=== PATIENT | male | born 1930 | race Caucasian/White ===

== ENCOUNTER 2017-09-29 10:41 | Outpatient (CLI) | END 2017-09-29 10:42 | disposition short-term general hospital (02) | LOC: AMBL 10:41 | PROVIDERS: ATTEND Family Medicine | DX: S01.111A Laceration without foreign body of right eyelid and periocular area, initial encounter (principal); W05.0XXA Fall from non-moving wheelchair, initial encounter ==

== ENCOUNTER 2017-10-03 19:41 | Outpatient (CLI) | END 2017-10-03 19:42 | disposition short-term general hospital (02) | LOC: AMBL 19:41 | PROVIDERS: ATTEND Family Medicine | DX: M79.602 Pain in left arm (principal); S00.83XA Contusion of other part of head, initial encounter; R20.0 Anesthesia of skin; R53.1 Weakness ==

== ENCOUNTER 2017-10-12 08:14 | Outpatient (CLI) ==
[2017-10-12 08:51] LABS: BILIRUBIN,URINE Negative (NEGATIVE); KETONES,URINE Negative (NEGATIVE); LEUKOCYTE ESTERASE ,URINE Negative (NEGATIVE); NITRITE,URINE Negative (NEGATIVE); PH,URINE 5.5 (5-9); PROTEIN,URINE Negative (NEGATIVE); URINE, BLOOD Negative (NEGATIVE)
[2017-10-12 08:52] LABS: ADD URINE MICROSCOPIC NO
== END 2017-10-12 08:15 | disposition home or self-care (01) ==
LOC: NONPT 08:14
PROVIDERS: ATTEND Emergency Medicine
DX: R30.0 Dysuria (principal)
CPT/HCPCS: 81001

== ENCOUNTER 2017-10-22 14:44 | Outpatient (CLI) ==
[2017-10-22 17:59] VITALS: BMI 26.4
== END 2017-10-22 14:45 | disposition critical access hospital (66) ==
LOC: AMBL 14:44
PROVIDERS: ATTEND Emergency Medicine
DX: R05 Cough (principal); R41.0 Disorientation, unspecified; R09.89 Other specified symptoms and signs involving the circulatory and respiratory systems; R53.83 Other fatigue; R52 Pain, unspecified

== ENCOUNTER 2017-10-22 16:05 | Inpatient (IN) ==
[2017-10-22] MEDS ORDERED: TYLENOL PO PRN (16:16)
[2017-10-22] MEDS ORDERED: SODIUM CHLORIDE 1,000 ML IV SCH (16:30)
[2017-10-22 16:55] LABS: BASOPHILS % (AUTO) 0.1 % (0.0-3.0); EOSINOPHILS % (AUTO) 0.5 % (0.0-7.0); HEMATOCRIT 37.5 % (42.0-52.0); HEMOGLOBIN 11.7 g/dl (14.0-18.0); IMMATURE GRANULOCYTE % (AUTO) 0.3 % (0.0-5.0); LYMPHOCYTES # (AUTO) 0.6 K/uL (0.60-3.4); LYMPHOCYTES % (AUTO) 7.7 (10.0-50.0); MEAN CORPUSCULAR HGB CONC 31.2 (31.8-35.4); MEAN CORPUSCULAR VOLUME 73.8 fl (80.0-94.0); MONOCYTES # (AUTO) 0.6 K/uL (0.4-2.0); MONOCYTES % (AUTO) 7.7 (0-10); NEUTROPHILS # (AUTO) 6.6 K/ul (2.0-6.9); NEUTROPHILS % (AUTO) 83.7; PLATELET COUNT 239 10^3/uL (140-440); RED BLOOD COUNT 5.08 10^6/ul (4.70-6.10); WHITE BLOOD COUNT 7.93 K/ul (4.2-10.2)
--- NOTE | 2017-10-22 16:56 | CT ---
Exam: CT of the chest without intravenous contrast. Comparison: None available. Reason for exam: Coughing. 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 Image interpre tation is limited by the lack of intravenous contrast administration. The thyroid gland appears mildly heterogeneous. The aorta is prominent measuring 4 cm the level of the arch. There is atherosclerotic disease within the aorta and distal arterial vasculature to include the austyn nary vessels. There is a ground-glass nodularity in the right upper lobe on axial image number 25. Nodular density in the superior left lower lobe on axial image number 34. Ground-glass nodules in th e left lung base on axial image number 45. The gallbladder has been removed. The right adrenal gland has a nodular appearance. No pneumothorax, pleural effusion, or focal consolidation. No suspicious appearing osteoblastic or o steolytic lesions. Impression: 1. Ground-glass nodularity in the right upper and left lower lobes with a pleural-based nodule in the left lower lobe. Imaging findings likely represent inflammation and infection. Recommend short int erval follow-up CT imaging to document resolution. 2. The aorta measures 4 cm at the level of the arch. 3. Nodularity of the right adrenal gland. If clinical concern exists, MRI or CT adrenal gland protoc ol may be performed for further characterization.
[2017-10-22 17:43] LABS: ALBUMIN 3.3 g/dL (3.4-5.0); ALBUMIN/GLOBULIN RATIO 0.97; ANION GAP 16.8; BILIRUBIN,TOTAL 0.67 mg/dL (0.00-1.20); BUN/CREATININE RATIO 28.2; CALCIUM 9.2 mg/dL (8.2-10.2); CREATININE 0.78 mg/dL (0.60-1.10); POTASSIUM 3.8 mmol/L (3.5-5.1); TOTAL PROTEIN 6.7 g/dL (5.8-8.1); TROPONIN I 0.023 ng/ml (0.0000-0.4000)
[2017-10-22 17:59] VITALS: BMI 26.4
[2017-10-22] MEDS: DUONEB NEB SCH ×2 (18:10→22:58)
[2017-10-22] MEDS ORDERED: ROCEPHIN ONE (18:32)
[2017-10-22] MEDS: ROCEPHIN 1 GM in SODIUM CHLORIDE 50 ML IV SCH (18:36)
[2017-10-22 18:40] LABS: FLU INTERNAL QC INTERNAL QC VALID; RAPID FLU A NEGATIVE (NEGATIVE); RAPID FLU B NEGATIVE (NEGATIVE)
[2017-10-22] MEDS ORDERED: GUAIFENESIN PO PRN (21:16)
[2017-10-22] MEDS ORDERED: ANTIVERT PO PRN (21:16)
[2017-10-22] MEDS ORDERED: IMODIUM PO PRN (21:16)
[2017-10-22] MEDS ORDERED: ALBUTEROL 0.083% NEB NEB PRN (21:16)
[2017-10-22] MEDS ORDERED: MILK OF MAGNESIA PO PRN (21:16)
[2017-10-22] MEDS ORDERED: DULCOLAX PO PRN (21:16)
[2017-10-23] MEDS: DUONEB NEB SCH ×4 (04:52→23:20)
[2017-10-23 05:30] LABS: BASOPHILS % (AUTO) 0.2 % (0.0-3.0); EOSINOPHILS % (AUTO) 0.5 % (0.0-7.0); HEMATOCRIT 34.8 % (42.0-52.0); HEMOGLOBIN 10.7 g/dl (14.0-18.0); IMMATURE GRANULOCYTE % (AUTO) 0.2 % (0.0-5.0); LYMPHOCYTES # (AUTO) 0.6 K/uL (0.60-3.4); MEAN CORPUSCULAR HEMOGLOBIN 22.9 pg (27.0-31.0); MEAN CORPUSCULAR HGB CONC 30.7 (31.8-35.4); MEAN CORPUSCULAR VOLUME 74.5 fl (80.0-94.0); MONOCYTES # (AUTO) 0.5 K/uL (0.4-2.0); MONOCYTES % (AUTO) 7.9 (0-10); NEUTROPHILS # (AUTO) 4.7 K/ul (2.0-6.9); NEUTROPHILS % (AUTO) 81.2; PLATELET COUNT 210 10^3/uL (140-440); RED BLOOD COUNT 4.67 10^6/ul (4.70-6.10); WHITE BLOOD COUNT 5.79 K/ul (4.2-10.2)
[2017-10-23 06:25] LABS: ALBUMIN/GLOBULIN RATIO 0.97; ANION GAP 13.7; BILIRUBIN,TOTAL 0.48 mg/dL (0.00-1.20); BUN/CREATININE RATIO 27.02; CALCIUM 8.7 mg/dL (8.2-10.2); CREATININE 0.74 mg/dL (0.60-1.10); POTASSIUM 3.7 mmol/L (3.5-5.1); TOTAL PROTEIN 6.1 g/dL (5.8-8.1)
[2017-10-23 06:41] LABS: TROPONIN I 0.031 ng/ml (0.0000-0.4000)
[2017-10-23 07:09] LABS: CREATINE KINASE MB 1.7 ng/ml (0.0-3.6)
[2017-10-23] MEDS ORDERED: ROBITUSSIN SUGAR-FREE PO PRN (07:45)
[2017-10-23] MEDS: SODIUM CHLORIDE 1,000 ML IV SCH ×3 (08:25→17:02)
[2017-10-23] MEDS ORDERED: CHOLECALCIFEROL PO SCH (09:00)
[2017-10-23] MEDS ORDERED: SENNOSIDES PO SCH (09:00)
[2017-10-23] MEDS ORDERED: DOCUSATE SODIUM PO SCH (09:00)
[2017-10-23] MEDS ORDERED: CARBOXYMETHYLCELLULOSE SODIUM OP SCH (09:00)
[2017-10-23] MEDS ORDERED: NON-FORMULARY MEDICATION (Ferrous Sulfate [Ferrous Sulfate] 1 TAB) PO SCH (09:00)
[2017-10-23] MEDS: FERROUS SULFATE PO SCH (09:18)
[2017-10-23] MEDS: COLACE PO SCH (09:18)
[2017-10-23] MEDS: SENNA PO SCH (09:18)
[2017-10-23] MEDS: GLUCOPHAGE PO SCH ×2 (09:18→16:59)
[2017-10-23] MEDS: ASPIRIN EC PO SCH (09:18)
[2017-10-23] MEDS: MULTIVITAMIN TABLET PO SCH (09:18)
[2017-10-23] MEDS: VITAMIN D PO SCH (09:18)
[2017-10-23] MEDS: NON-FORMULARY MEDICATION (Diclofenac Sodium 1 APPLIC) TD SCH ×3 (09:21→23:49)
[2017-10-23] MEDS: PROAIR HFA IH SCH ×2 (09:27→13:59)
[2017-10-23] MEDS: ULTRAM PO SCH ×3 (09:27→20:07)
[2017-10-23] MEDS: ARTIFICIAL TEARS OPTH SOL OP SCH ×4 (09:27→20:08)
[2017-10-23] MEDS: ROCEPHIN 1 GM in SODIUM CHLORIDE 50 ML IV SCH (09:27)
[2017-10-23] MEDS ORDERED: CALMOSEPTINE OINTMENT TP PRN (11:20)
[2017-10-23] MEDS: CELEXA PO SCH (17:21)
[2017-10-23] MEDS: MELATONIN 2 MG PO SCH (23:49)
[2017-10-24] MEDS: TYLENOL PO PRN (00:21)
[2017-10-24] MEDS ORDERED: ATIVAN PO STA (01:54)
[2017-10-24] MEDS: DUONEB NEB SCH ×4 (05:20→22:58)
[2017-10-24 05:22] LABS: EOSINOPHILS # (AUTO) 0.1 K/ul (0.0-0.7); EOSINOPHILS % (AUTO) 0.9 % (0.0-7.0); HEMATOCRIT 33.4 % (42.0-52.0); HEMOGLOBIN 10.3 g/dl (14.0-18.0); IMMATURE GRANULOCYTE % (AUTO) 0.2 % (0.0-5.0); LYMPHOCYTES # (AUTO) 0.7 K/uL (0.60-3.4); LYMPHOCYTES % (AUTO) 12.8 (10.0-50.0); MEAN CORPUSCULAR HEMOGLOBIN 22.7 pg (27.0-31.0); MEAN CORPUSCULAR HGB CONC 30.8 (31.8-35.4); MEAN CORPUSCULAR VOLUME 73.6 fl (80.0-94.0); MONOCYTES # (AUTO) 0.5 K/uL (0.4-2.0); MONOCYTES % (AUTO) 8.9 (0-10); NEUTROPHILS # (AUTO) 4.4 K/ul (2.0-6.9); NEUTROPHILS % (AUTO) 77.2; PLATELET COUNT 191 10^3/uL (140-440); RED BLOOD COUNT 4.54 10^6/ul (4.70-6.10); WHITE BLOOD COUNT 5.72 K/ul (4.2-10.2)
[2017-10-24 05:56] LABS: ALBUMIN 2.8 g/dL (3.4-5.0); ALBUMIN/GLOBULIN RATIO 0.9; ANION GAP 11.3; BILIRUBIN,TOTAL 0.39 mg/dL (0.00-1.20); BUN/CREATININE RATIO 21.91; CALCIUM 8.4 mg/dL (8.2-10.2); CREATININE 0.73 mg/dL (0.60-1.10); POTASSIUM 3.3 mmol/L (3.5-5.1); TOTAL PROTEIN 5.9 g/dL (5.8-8.1)
[2017-10-24] MEDS: SODIUM CHLORIDE 1,000 ML IV SCH (06:41)
[2017-10-24] MEDS: ROCEPHIN 1 GM in SODIUM CHLORIDE 50 ML IV SCH (09:57)
[2017-10-24] MEDS: ZYPREXA PO SCH (09:58)
[2017-10-24] MEDS: MULTIVITAMIN TABLET PO SCH (09:58)
[2017-10-24] MEDS: ASPIRIN EC PO SCH (09:59)
[2017-10-24] MEDS: FERROUS SULFATE PO SCH (09:59)
[2017-10-24] MEDS: GLUCOPHAGE PO SCH ×2 (09:59→17:12)
[2017-10-24] MEDS: SENNA PO SCH (09:59)
[2017-10-24] MEDS: COLACE PO SCH (09:59)
[2017-10-24] MEDS: ARTIFICIAL TEARS OPTH SOL OP SCH ×4 (10:00→20:21)
[2017-10-24] MEDS: CELEXA PO SCH (10:00)
[2017-10-24] MEDS: ULTRAM PO SCH ×3 (10:00→20:21)
[2017-10-24] MEDS: VITAMIN D PO SCH (10:01)
[2017-10-24] MEDS: NON-FORMULARY MEDICATION (Diclofenac Sodium 1 APPLIC) TD SCH ×3 (11:15→20:22)
--- NOTE | 2017-10-24 13:57 | HP ---
DATE OF SERVICE: 10/22/17 CHIEF COMPLAINT: Fever and coughing HISTORY OF PRESENT ILLNESS: This is an 86 year old male who is an senior care resident was sent from there with cough and congestion, shortness of breath and getting yellow/green phlegm. At that time the patient was a direct admission. The CT chest showed the pneumonia, left upper and right upper and lower area infiltrates. Had mild temperature of 99 at the time of admission. REVIEW OF SYSTEMS: CONSTITUTIONAL: Fever and chills. Weakness of tiredness. HEENT: Normal. ENDOCRINE: No weight gain; no weight loss. CVS: No chest pain. No PND, no orthopnea. Shortness of breath. No PND, no orthopnea. RESPIRATORY: Cough, congestion. No hemoptysis. GI: No nausea, no vomiting. No abdominal pain. No melena. : No hematuria. No polyuria. MUSCULOSKELETAL: No joint swelling. PSYCHIATRIC: Not anxious. No depression. No suicidal thoughts. No homicidal thoughts. SKIN: Intact, no open lesions. PAST MEDICAL HISTORY: Hypertension Dyslipidemia COPD Osteoarthritis Diabetes Anemia History of prostate cancer PAST SURGICAL HISTORY: Cataract surgery PERSONAL HISTORY: The patient does not smoke or drink and lives at the senior care. He is partial dependant upon the ADL's Family history is significant for the diabetes and the cancer. MEDICATIONS: Meclizine Voltaren Tylenol Senna Tramadol Refresh eye drops Proventil Multivitamin Milk of magnesia Melatonin Loperamide Guaifenesin Glucophage Ferrous Sulfate Dulcolax Cholecalciferol Aspirin Albuterol ALLERGIES: Neurontin Lisinopril Pregabalin Sulfa PHYSICAL EXAMINATION: V/S: Blood pressure 133/65, respiratory rate 18, heart rate 71, temperature 97.8 , saturation 96%. HEENT: Atraumatic, normocephalic. No scleral icterus. Mucosa dry. Pallor positive. NECK: Supple. No JVD, no bruit. No lymphadenopathy. No thyromegaly. HEART: S1, S2 normal. No murmur. No cyanosis or clubbing. No ascites. LUNGS: Basilar crackles in both lungs. Clear to auscultation. No rales or rhonchi. ABDOMEN: Soft, nontender. Bowel sounds are active. No CVA tenderness. No rigidity or guarding. EXTREMITIES: No cyanosis, clubbing or pedal edema. MUSCULOSKELETAL: Normal joints, no swelling. NEUROLOGIC: The patient is awake, alert and oriented times three. SKIN: Intact; no open lesions. LYMPHATIC: No lymph nodes palpable. LABS: WBC 7.93, hgb 11.7, hct 37.5, plt count 239, sodium 141, potassium 3.8, chloride 104, bicarb 24, BUN 22, creatinine 0.72. ASSESSMENT: 1. Right upper and left lower lobe infiltrates with pneumonia 2. Hypertension 3. Dyslipidemia 4. Diabetes 5. Osteoarthritis 6. DJD spine PLAN: 1. Admit patient to the regular floor 2. CBC and CMP today and daily 3. Cardiac enzymes and Troponin 4. IV fluids 5. Rocephin 1 gram daily 6. DUO NEBS Q 6 hours 7. Robitussin cough medication 8. Continue home medications. TIME SPENT: MORE THAN 75 minutes MTDD
[2017-10-24] MEDS ORDERED: VISTARIL INJ IM STA (18:37)
[2017-10-24] MEDS: MELATONIN 2 MG PO SCH (20:22)
[2017-10-25 04:46] LABS: BASOPHILS % (AUTO) 0.2 % (0.0-3.0); EOSINOPHILS # (AUTO) 0.2 K/ul (0.0-0.7); EOSINOPHILS % (AUTO) 4.4 % (0.0-7.0); HEMATOCRIT 34.5 % (42.0-52.0); HEMOGLOBIN 10.7 g/dl (14.0-18.0); LYMPHOCYTES # (AUTO) 0.7 K/uL (0.60-3.4); LYMPHOCYTES % (AUTO) 18.2 (10.0-50.0); MEAN CORPUSCULAR HEMOGLOBIN 23.2 pg (27.0-31.0); MEAN CORPUSCULAR VOLUME 74.7 fl (80.0-94.0); MONOCYTES # (AUTO) 0.3 K/uL (0.4-2.0); MONOCYTES % (AUTO) 7.9 (0-10); NEUTROPHILS # (AUTO) 2.8 K/ul (2.0-6.9); NEUTROPHILS % (AUTO) 69.3; PLATELET COUNT 162 10^3/uL (140-440); RED BLOOD COUNT 4.62 10^6/ul (4.70-6.10); WHITE BLOOD COUNT 4.07 K/ul (4.2-10.2)
[2017-10-25] MEDS: SODIUM CHLORIDE 1,000 ML IV SCH ×2 (04:57→18:57)
[2017-10-25 05:14] LABS: ALBUMIN 2.5 g/dL (3.4-5.0); ALBUMIN/GLOBULIN RATIO 0.83; ANION GAP 11.3; BILIRUBIN,TOTAL 0.3 mg/dL (0.00-1.20); BUN/CREATININE RATIO 15.38; CREATININE 0.65 mg/dL (0.60-1.10); POTASSIUM 3.3 mmol/L (3.5-5.1); TOTAL PROTEIN 5.5 g/dL (5.8-8.1)
[2017-10-25] MEDS: DUONEB NEB SCH ×4 (05:18→23:12)
[2017-10-25] MEDS: ASPIRIN EC PO SCH (08:27)
[2017-10-25] MEDS: ZYPREXA PO SCH (09:40)
[2017-10-25] MEDS: COLACE PO SCH (09:40)
[2017-10-25] MEDS: MULTIVITAMIN TABLET PO SCH (09:41)
[2017-10-25] MEDS: VITAMIN D PO SCH (09:41)
[2017-10-25] MEDS: ROCEPHIN 1 GM in SODIUM CHLORIDE 50 ML IV SCH (09:42)
[2017-10-25] MEDS: SENNA PO SCH (09:43)
[2017-10-25] MEDS: FERROUS SULFATE PO SCH (09:44)
[2017-10-25] MEDS: ULTRAM PO SCH ×3 (09:45→20:54)
[2017-10-25] MEDS: NON-FORMULARY MEDICATION (Diclofenac Sodium 1 APPLIC) TD SCH ×3 (09:45→20:55)
[2017-10-25] MEDS: ARTIFICIAL TEARS OPTH SOL OP SCH ×4 (09:45→20:53)
[2017-10-25] MEDS: CELEXA PO SCH (09:45)
[2017-10-25] MEDS: GLUCOPHAGE PO SCH ×2 (10:25→18:13)
[2017-10-25] MEDS ORDERED: HALDOL IM ONE (11:28)
[2017-10-25] MEDS ORDERED: K-DUR PO STA (14:51)
[2017-10-25] MEDS: SEROQUEL PO SCH ×2 (15:01→20:53)
[2017-10-25] MEDS: TYLENOL PO PRN (15:04)
[2017-10-25] MEDS: MELATONIN 2 MG PO SCH (20:56)
[2017-10-25] MEDS: HALDOL IM PRN (22:42)
[2017-10-26 05:13] LABS: EOSINOPHILS # (AUTO) 0.1 K/ul (0.0-0.7); EOSINOPHILS % (AUTO) 3.4 % (0.0-7.0); HEMATOCRIT 33.9 % (42.0-52.0); HEMOGLOBIN 10.3 g/dl (14.0-18.0); IMMATURE GRANULOCYTE % (AUTO) 0.2 % (0.0-5.0); LYMPHOCYTES # (AUTO) 0.5 K/uL (0.60-3.4); LYMPHOCYTES % (AUTO) 12.5 (10.0-50.0); MEAN CORPUSCULAR HEMOGLOBIN 22.7 pg (27.0-31.0); MEAN CORPUSCULAR HGB CONC 30.4 (31.8-35.4); MEAN CORPUSCULAR VOLUME 74.7 fl (80.0-94.0); MONOCYTES # (AUTO) 0.3 K/uL (0.4-2.0); MONOCYTES % (AUTO) 8.1 (0-10); NEUTROPHILS # (AUTO) 3.1 K/ul (2.0-6.9); NEUTROPHILS % (AUTO) 75.8; PLATELET COUNT 162 10^3/uL (140-440); RED BLOOD COUNT 4.54 10^6/ul (4.70-6.10); WHITE BLOOD COUNT 4.07 K/ul (4.2-10.2)
[2017-10-26 05:30] LABS: ALBUMIN 2.6 g/dL (3.4-5.0); ALBUMIN/GLOBULIN RATIO 0.87; ANION GAP 10.6; BILIRUBIN,TOTAL 0.4 mg/dL (0.00-1.20); BUN/CREATININE RATIO 12.3; CALCIUM 8.4 mg/dL (8.2-10.2); CREATININE 0.65 mg/dL (0.60-1.10); POTASSIUM 3.6 mmol/L (3.5-5.1); TOTAL PROTEIN 5.6 g/dL (5.8-8.1)
[2017-10-26] MEDS: DUONEB NEB SCH ×4 (05:33→23:12)
[2017-10-26] MEDS: ASPIRIN EC PO SCH (08:55)
[2017-10-26] MEDS: CELEXA PO SCH (08:56)
[2017-10-26] MEDS: MULTIVITAMIN TABLET PO SCH (08:56)
[2017-10-26] MEDS: FERROUS SULFATE PO SCH (08:56)
[2017-10-26] MEDS: ULTRAM PO SCH ×3 (08:56→20:25)
[2017-10-26] MEDS: GLUCOPHAGE PO SCH ×2 (08:56→17:29)
[2017-10-26] MEDS: SEROQUEL PO SCH ×2 (08:57→20:26)
[2017-10-26] MEDS: VITAMIN D PO SCH (08:57)
[2017-10-26] MEDS: ZYPREXA PO SCH (08:57)
[2017-10-26] MEDS: COLACE PO SCH (08:57)
[2017-10-26] MEDS: SENNA PO SCH (08:57)
[2017-10-26] MEDS: NON-FORMULARY MEDICATION (Diclofenac Sodium 1 APPLIC) TD SCH ×3 (09:10→20:27)
[2017-10-26] MEDS: MUCINEX PO SCH ×2 (09:10→20:25)
[2017-10-26] MEDS: KEFLEX PO SCH ×2 (09:10→20:25)
[2017-10-26] MEDS: PREDNISONE PO SCH ×2 (09:10→17:28)
[2017-10-26] MEDS: ARTIFICIAL TEARS OPTH SOL OP SCH ×4 (09:11→20:27)
--- NOTE | 2017-10-26 13:20 | PN ---
DATE OF SERVICE: 10/24/17 SUBJECTIVE: The patient was admitted with pneumonia. Having some breathing problem and coughing. Since admission the patient been having more confusion episode pulling IV site and more restless. The patient been started on Celexa and did not help. REVIEW OF SYSTEMS: CONSTITUTIONAL: No fever, no chills. HEENT: Normal. ENDOCRINE: No weight gain, no weight loss. CVS: No angina symptoms. No CHF symptoms. No palpitations. No atypical chest pain for CAD. No shortness of breath. No PND, no orthopnea. RESPIRATORY: No cough, no hemoptysis. GI: No nausea, no vomiting. No abdominal pain. : No hematuria. No polyuria. MUSCULOSKELETAL:. No joint swelling. PSYCHIATRIC: Not anxious. No depression. No suicidal thoughts. No homicidal thoughts. SKIN: Intact. No rash. PHYSICAL EXAMINATION: V/S: Blood pressure 146/68, respiratory rate 20, heart rate 74 and temperature 98.1. HEENT: Normocephalic, atraumatic. Mucosa dry. Pallor positive. No icterus. NECK: Supple. No JVD, no carotid bruit. No lymphadenopathy. LUNGS: Decreased and basilar crackles. Clear to auscultation. No rales or rhonchi. HEART: S1, S2 normal. No S3. No murmur, gallop or regurgitation. ABDOMEN: Soft, nontender. Bowel sounds active. No rigidity. No rebound or guarding. No CVA tenderness. EXTREMITIES: No clubbing, cyanosis or pedal edema. MUSCULOSKELETAL: No joint swelling. NEUROLOGIC: Awake, alert, but not oriented to time, place and person. No focal deficit. LYMPHATIC: No lymph nodes palpable. SKIN: Intact. LABS: WBC 5.72, hgb 10.3, hct 33.4, plt count 191, sodium 139, potassium 3.3, chloride 107, bicarb 24, BUN 16, creatinine 0.73. ASSESSMENT: 1. Health care facility acquired pneumonia 2. Dehydration 3. Acute delirium with Alzheimer Dementia 4. Coronary artery disease 5. COPD 6. Osteoarthritis 7. DJD spine 8. History of prostate cancer PLAN: 1. Continue the Rocephin, breathing treatment, DUO NEBS, IV fluids 2. Zyprexa 2.5mg PO daily 3. Ativan 0.5mg PO HS TIME SPENT: More than 35 minutes MTDD
--- NOTE | 2017-10-26 13:33 | PN ---
DATE OF SERVICE: 10/23/17 SUBJECTIVE: The patient was admitted pneumonia, shortness of breath and coughing. The patient is restless. REVIEW OF SYSTEMS: CONSTITUTIONAL: No night sweats. No fatigue, malaise, lethargy. No fever or chills. HEENT: Eyes: No visual changes. No eye pain. No eye discharge. ENT: No runny nose. No epistaxis. No sinus pain. No sore throat. No odynophagia. No congestion. RESPIRATORY: Cough, Congestion. No hemoptysis. No shortness of breath. CARDIOVASCULAR: No angina symptoms. No CHF symptoms. No atypical chest pain for CAD. No palpitations. No orthopnea. GASTROINTESTINAL: No abdominal pain. No nausea or vomiting. No diarrhea or constipation. No hematemesis. No hematochezia. GENITOURINARY: No urgency. No frequency. No dysuria. No hematuria. No obstructive symptoms. No discharge. No pain. No significant abnormal bleeding. MUSCULOSKELETAL: No musculoskeletal pain; no joint swelling. NEUROLOGICAL: No headache. No neck pain. No syncope. No seizures. No dizziness. PSYCHIATRIC: Not anxious. No depression. No suicidal thoughts. No homicidal thoughts. SKIN: No rash. No lesions. No wounds. ENDOCRINE: No unexplained weight loss. No weight gain. HEMATOLOGIC/LYMPHATIC: No anemia. No purpura. No petechiae. No prolonged or excessive bleeding. No palpable lymph nodes. PHYSICAL EXAMINATION: V/S: Blood pressure 128/57, respiratory rate 18, heart rate 90, temperature 98.4 and saturation 96 on 2 liters. HEENT: Normocephalic, atraumatic. Mucosa dry. Pallor positive. No icterus. NECK: Supple. No JVD, no carotid bruit. No lymphadenopathy. LUNGS: Decreased and basilar crackles. Clear to auscultation. No rales or rhonchi. HEART: S1, S2 normal. No S3. No murmur, gallop or regurgitation. ABDOMEN: Soft, nontender. Bowel sounds active. No rigidity. No rebound or guarding. No CVA tenderness. EXTREMITIES: No clubbing, cyanosis or pedal edema. MUSCULOSKELETAL: No joint swelling. NEUROLOGIC: Awake, alert, not oriented to time, place and person. No focal deficit. LYMPHATIC: No lymph nodes palpable. SKIN: Intact. LABS: Sodium 143, potassium 3.7, chloride 107, bicarb 26, BUN 20, creatinine 0.74, WBC 5.79, hgb 10.7, hct 34.8, plt count 210 ASSESSMENT: 1. Bilateral pneumonia 2. Worsening confusion with Alzheimer's Dementia 3. Coronary artery disease 4. COPD 5. Hypertension 6. Dyslipidemia PLAN: 1. Will start the patient on Zyprexa 2.5mg PO daily 2. Rocephin 1 gram daily 3. DUO NEBS 4. IV fluids TIME SPENT: More than 35 minutes MTDD
--- NOTE | 2017-10-26 14:30 | CT ---
EXAM: CT THORAX HISTORY: Pneumonia, follow-up. Abnormal previous CT. TECHNIQUE: CT thorax without intravenous contrast. Multiplanar images presented. Coronal and sagit noam re-formations. COMPARISON: 10/22/2017 FINDINGS: Normal heart size. There is mild to moderate atherosclerotic disease. The tubular ascending aortic caliber is upper limit normal at 3.8 cm. Noticeable increase in patchy consolidations of the posterior right upper lobe. Increasing bibasilar consolidations remaining mild currently. Questionable trace bilateral pleural effusions. No vascul ar congestion or central interstitial edema. 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 IMPRESSION: Increasing patchy infiltrates bilaterally with probable trace pleural effusions. These a re suggestive of pneumonia.
[2017-10-26] MEDS: MELATONIN 2 MG PO SCH (20:27)
[2017-10-26] MEDS: HALDOL IM PRN (22:23)
[2017-10-27] MEDS: DUONEB NEB SCH ×4 (04:56→22:38)
[2017-10-27] MEDS: VITAMIN D PO SCH (08:10)
[2017-10-27] MEDS: ARTIFICIAL TEARS OPTH SOL OP SCH ×4 (08:10→21:04)
[2017-10-27] MEDS: ZYPREXA PO SCH (08:11)
[2017-10-27] MEDS: KEFLEX PO SCH ×2 (08:11→21:04)
[2017-10-27] MEDS: MULTIVITAMIN TABLET PO SCH (08:11)
[2017-10-27] MEDS: SENNA PO SCH (08:11)
[2017-10-27] MEDS: ASPIRIN EC PO SCH (08:11)
[2017-10-27] MEDS: MUCINEX PO SCH ×2 (08:11→21:04)
[2017-10-27] MEDS: COLACE PO SCH (08:12)
[2017-10-27] MEDS: PREDNISONE PO SCH ×2 (08:12→18:14)
[2017-10-27] MEDS: ULTRAM PO SCH ×4 (08:12→21:04)
[2017-10-27] MEDS: SEROQUEL PO SCH (08:12)
[2017-10-27] MEDS: FERROUS SULFATE PO SCH (08:12)
[2017-10-27] MEDS: GLUCOPHAGE PO SCH ×2 (08:12→18:13)
[2017-10-27] MEDS: CELEXA PO SCH (08:12)
[2017-10-27] MEDS: NON-FORMULARY MEDICATION (Diclofenac Sodium 1 APPLIC) TD SCH ×3 (08:13→21:04)
--- NOTE | 2017-10-27 10:55 | PN ---
DATE OF SERVICE: 10/25/17 SUBJECTIVE: The patient was admitted with bilateral pneumonia. He had cough and was congested. The patient has very much agitation, shouting all the time, but when you go and talk to the patient he gets calmed down. REVIEW OF SYSTEMS: CONSTITUTIONAL: No fever, no chills. HEENT: Normal. ENDOCRINE: No weight gain, no weight loss. CVS: No angina symptoms. No CHF symptoms. No palpitations. No atypical chest pain for CAD. No shortness of breath. No PND, no orthopnea. RESPIRATORY: No cough, no hemoptysis. GI: No nausea, no vomiting. No abdominal pain. : No hematuria. No polyuria. MUSCULOSKELETAL:. No joint swelling. PSYCHIATRIC: Not anxious. No depression. No suicidal thoughts. No homicidal thoughts. SKIN: Intact. No rash. PHYSICAL EXAMINATION: V/S: Blood pressure 149/74, respiratory rate 22, heart rate 69, temperature 98.0 , saturation 95. HEENT: Normocephalic, atraumatic. Mucosa dry. Pallor positive. No icterus. NECK: Supple. No JVD, no carotid bruit. No lymphadenopathy. LUNGS: Basilar crackles are present. No rales or rhonchi. HEART: S1, S2 normal. No S3. No murmur, gallop or regurgitation. ABDOMEN: Soft, nontender. Bowel sounds active. No rigidity. No rebound or guarding. No CVA tenderness. EXTREMITIES: No clubbing, cyanosis or pedal edema. MUSCULOSKELETAL: No joint swelling. NEUROLOGIC: Awake, alert, oriented times three, but has some confusion episodes. No focal deficit. LYMPHATIC: No lymph nodes palpable. SKIN: Intact. LABS: White count 4.07, hemoglobin 10.7, hematocrit 34.5, platelet count 162, sodium 140, potassium 3.3, chloride 106, bicarb 26, BUN 10, creatinine 0.65, glucose 88. ASSESSMENT: 1. PNEUMONIA, BILATERAL LOWER LOBES 2. DEMENTIA WITH BEHAVIOR CHANGES 3. HYPOKALEMIA 4. HYPERTENSION 5. DYSLIPIDEMIA 6. COPD 7. OSTEOARTHRITIS 8. DJD OF THE SPINE 9. PROSTATE CANCER PLAN: 1. Continue the Rocephin 1 gram daily. 2. IV fluids, but the patient keeps pulling out the line. We'll see. 3. Breathing treatments. 4. Prednisone 10 mg twice a day. TIME SPENT: More than 35 minutes today. ANDREWD
--- NOTE | 2017-10-27 11:09 | PN ---
DATE OF SERVICE: 10/26/17 SUBJECTIVE: The patient was admitted with pneumonia, cough and congestion. Still complaining of the same. CT scan done which shows again the pneumonia is present. The patient pulls out the IV lines, so we are having trouble keeping the IV lines so the patient is on the oral antibiotics. He is getting the breathing treatments. REVIEW OF SYSTEMS: CONSTITUTIONAL: No fever, no chills. HEENT: Normal. ENDOCRINE: No weight gain, no weight loss. CVS: No angina symptoms. No CHF symptoms. No palpitations. No atypical chest pain for CAD. No shortness of breath. No PND, no orthopnea. RESPIRATORY: No cough, no hemoptysis. GI: No nausea, no vomiting. No abdominal pain. : No hematuria. No polyuria. MUSCULOSKELETAL:. No joint swelling. PSYCHIATRIC: Not anxious. No depression. No suicidal thoughts. No homicidal thoughts. SKIN: Intact. No rash. PHYSICAL EXAMINATION: V/S: Blood pressure 173/63, respiratory rate 18, heart rate 77, temperature 97.4 , saturation 98. HEENT: Normocephalic, atraumatic. Mucosa dry. Pallor positive. NECK: Supple. No JVD, no carotid bruit. No lymphadenopathy. LUNGS: Basilar crackles. No rales or rhonchi. HEART: S1, S2 normal. No S3. No murmur, gallop or regurgitation. ABDOMEN: Soft, nontender. Bowel sounds active. No rigidity. No rebound or guarding. No CVA tenderness. EXTREMITIES: No clubbing, cyanosis or pedal edema. MUSCULOSKELETAL: No joint swelling. NEUROLOGIC: Awake, alert, but not talking. He doesn't know where he is. He gets anxious. No focal deficit. LYMPHATIC: No lymph nodes palpable. SKIN: Intact. LABS: Sodium 139, potassium 3.6, chloride 104, bicarb 28, BUN 8, creatinine 0.65, white count 4.07, hemoglobin 10.3, hematocrit 33.9, platelet count 162. ASSESSMENT: 1. BILATERAL PNEUMONIA 2. ALZHEIMER'S DEMENTIA WITH BEHAVIOR CHANGES 3. HYPERTENSION 4. DYSLIPIDEMIA 5. HISTORY OF PROSTATE CANCER PLAN: 1. Continue Keflex, Prednisone, breathing treatments. 2. I & O's. 3. Will follow up with the patient in daily rounds. TIME SPENT: More than 35 minutes today [facility]
[2017-10-27] MEDS: MELATONIN 2 MG PO SCH (21:05)
[2017-10-28] MEDS: HALDOL IM PRN (00:18)
[2017-10-28] MEDS: DUONEB NEB SCH ×2 (05:16→10:55)
[2017-10-28 07:08] LABS: EOSINOPHILS % (AUTO) 0.2 % (0.0-7.0); HEMATOCRIT 36.9 % (42.0-52.0); HEMOGLOBIN 11.4 g/dl (14.0-18.0); IMMATURE GRANULOCYTE % (AUTO) 0.2 % (0.0-5.0); LYMPHOCYTES # (AUTO) 0.5 K/uL (0.60-3.4); LYMPHOCYTES % (AUTO) 11.1 (10.0-50.0); MEAN CORPUSCULAR HEMOGLOBIN 22.8 pg (27.0-31.0); MEAN CORPUSCULAR HGB CONC 30.9 (31.8-35.4); MEAN CORPUSCULAR VOLUME 73.7 fl (80.0-94.0); MONOCYTES # (AUTO) 0.3 K/uL (0.4-2.0); MONOCYTES % (AUTO) 6.3 (0-10); NEUTROPHILS # (AUTO) 3.4 K/ul (2.0-6.9); NEUTROPHILS % (AUTO) 82.2; PLATELET COUNT 192 10^3/uL (140-440); RED BLOOD COUNT 5.01 10^6/ul (4.70-6.10); WHITE BLOOD COUNT 4.16 K/ul (4.2-10.2)
[2017-10-28 07:29] LABS: ANISOCYTOSIS 1+ (NOT PRESENT); MICROCYTOSIS 1+ (NOT PRESENT)
[2017-10-28 07:33] LABS: ALBUMIN 3.1 g/dL (3.4-5.0); ALBUMIN/GLOBULIN RATIO 0.84; ANION GAP 15.7; BILIRUBIN,TOTAL 0.4 mg/dL (0.00-1.20); BUN/CREATININE RATIO 18.42; CALCIUM 9.1 mg/dL (8.2-10.2); CREATININE 0.76 mg/dL (0.60-1.10); POTASSIUM 3.7 mmol/L (3.5-5.1); TOTAL PROTEIN 6.8 g/dL (5.8-8.1)
[2017-10-28] MEDS: MUCINEX PO SCH (09:52)
[2017-10-28] MEDS: KEFLEX PO SCH (09:52)
[2017-10-28] MEDS: VITAMIN D PO SCH (09:52)
[2017-10-28] MEDS: SENNA PO SCH (09:52)
[2017-10-28] MEDS: MULTIVITAMIN TABLET PO SCH (09:52)
[2017-10-28] MEDS: PREDNISONE PO SCH ×2 (09:52→17:30)
[2017-10-28] MEDS: ARTIFICIAL TEARS OPTH SOL OP SCH ×3 (09:52→17:00)
[2017-10-28] MEDS: GLUCOPHAGE PO SCH ×2 (09:53→17:30)
[2017-10-28] MEDS: CELEXA PO SCH (09:53)
[2017-10-28] MEDS: COLACE PO SCH (09:53)
[2017-10-28] MEDS: ULTRAM PO SCH ×2 (09:53→15:49)
[2017-10-28] MEDS: FERROUS SULFATE PO SCH (09:53)
[2017-10-28] MEDS: ASPIRIN EC PO SCH (09:53)
[2017-10-28] MEDS: NON-FORMULARY MEDICATION (Diclofenac Sodium 1 APPLIC) TD SCH ×2 (09:55→15:49)
[2017-10-28 12:12] VITALS: TEMP 97.4
--- NOTE | 2017-10-28 13:28 | DS ---
DATE OF SERVICE: 10/28/17 FINAL DIAGNOSIS: 1. Bilateral pneumonia 2. Behavioral changes 3. Anemia 4. Hypertension 5. COPD 6. History of prostate cancer 7. Hypothyroidism 8. DJD spine 9. Hypokalemia which is resolved 10.Depression DISCHARGE INSTRUCTIONS: Discharge the patient back to the halfway. CBC and CMP within one week and every three months. Resume the regular home medications. MEDICATIONS AT DISCHARGE: Tylenol Proventil two puff four times a day Albuterol Aspirin Dulcolax Refresh tears Vitamin D Diclofenac Ferrous Sulfate Loperamide PRN Milk of magnesia PRN Meclizine PRN Melatonin PRN Glucophage Tramadol NEW PRESCRIPTIONS: Keflex 500mg twice a day for 5 days DUO NEBS twice a day for one month Haloperidol 0.5mg IM PRN Citalopram 20mg PO daily DIET INSTRUCTIONS: Cardiac and healthy ACTIVITY: As much as tolerated. Can participate in the halfway activities. SMOKING: N/A DISEASE SPECIFIC EDUCATION: Pneumonia and pneumonia vaccination Dehydration Diabetes and sugar monitoring been discussed with halfway staff as patient could not understand us. We discussed the care and the prognosis and plan with halfway staff. HOSPITAL COURSE: Clint Mas who is an 86 year old male was sent from the halfway for cough and congestion and fever. Initial WBC was normal, influenza was negative, CT of the chest done in the emergency room showed ground glass nodularity in the left upper lobe and the left lower lobe consistent with pneumonia. At that time admitted to the hospital with pneumonia and started on the IV antibiotics Rocephin, IV fluids and DUO NEBS. With the given treatment the patient gradually was getting better but the patient gets agitated and hieu to pull out the IV line which was inserted again and keeps pulling it off. Goes restless and tried to throw off all his clothes but when you go and talk to the patient he will communicate with you. Awake and alert but not completely oriented because of the Alzheimer's Dementia. We started the patient on the Zyprexa thinking it will help his mood. Did not change, then we had to start the Citalopram 20mg. Then Haldol was given 2-3 night to calm him down so that he can be sleeping. Did not help him. When we talked to the halfway again the did mention that the patient having these kinds of episodes while the patient was in the halfway and they attributed that to be normal for the patient but he is not hurting anyone or hurting himself. Meanwhile we did discontinue the Haloperidol and the Zyprexa. Continue with the Citalopram. Antibiotic Keflex , he was getting the breathing treatments. Repeat CAT scan did show worsening of the symptoms but clinically the patient was more better from the breathing point or hearing of the wheezing and the crackle in the lungs is a lot better. At that time the patient is being discharged home. TIME SPENT: MORE THAN 65 MINUTES KRISTEL
[2017-10-28 14:53] VITALS: BP 168/76
== END 2017-10-28 15:48 | disposition home or self-care (01) | DRG 194 ==
LOC: MEDSURG A 16:05
PROVIDERS: ADMIT Emergency Medicine; ATTEND Emergency Medicine
DX: J18.9 Pneumonia, unspecified organism (principal); F05 Delirium due to known physiological condition; F02.81 Dementia in other diseases classified elsewhere, unspecified severity, with behavioral disturbance; D64.9 Anemia, unspecified; I10 Essential (primary) hypertension; R06.02 Shortness of breath; R50.9 Fever, unspecified; G30.9 Alzheimer's disease, unspecified; E11.9 Type 2 diabetes mellitus without complications; Y95 Nosocomial condition; E87.6 Hypokalemia; J44.9 Chronic obstructive pulmonary disease, unspecified; E03.9 Hypothyroidism, unspecified; M47.9 Spondylosis, unspecified; F32.9 Major depressive disorder, single episode, unspecified; I25.10 Atherosclerotic heart disease of native coronary artery without angina pectoris; M19.90 Unspecified osteoarthritis, unspecified site; E86.0 Dehydration; Z85.46 Personal history of malignant neoplasm of prostate; Z79.84 Long term (current) use of oral hypoglycemic drugs; Z79.899 Other long term (current) drug therapy
CPT/HCPCS: 36415; 80053; 82550; 82553; 84484; 85008; 85025; 87070; 87081; 87804; 93005; 93010; 94640; 97802